=== PATIENT | male | born 1950 | race Caucasian/White ===

== ENCOUNTER 2016-09-17 06:44 | Day surgery (SDC) | payer MEDICARE, OTHER ==
[~2016-09-17] VITALS: Ht 182.9 cm; Wt 98.0 kg
[~2016-09-17 06:44] MED LIST: ALBU8.5H2 IH; APIX5TAB PO; ASPI-860 PO; ATOR10TA PO; BECL8.7A5 IH; BUDE10.2 IH; FLEC100T2 PO; FLUT16SP NS; LACTATED RINGERS 1,000 ML IV SCH; MNTL10T PO; NFLOSA25TA PO; SODIUM CHLORIDE FLUSH 3 ML SYR IV PRN; ZLP10T PO; [UNRECOGNIZED DRUG - CODE] PO
[2016-09-17 07:08] VITALS: BP 142/84
[2016-09-17] MEDS ORDERED: LOSA1TAB69 PO (07:14)
[2016-09-17] MEDS ORDERED: MIDAZOLAM 2 MG/2 ML (VERSED) VIAL ONE (07:16)
[2016-09-17] MEDS ORDERED: PROPOFOL 20 ML IV ONE (07:16)
[2016-09-17] MEDS ORDERED: ALFENTANIL 500 MCG/ML (ALFENTA) 5 ML AMP IV ONE (07:16)
[2016-09-17 09:07] VITALS: BP 109/62
[2016-09-17 09:21] VITALS: BP 101/59
--- NOTE | 2016-09-17 11:04 | OPERATIVE REPORT ---
DATE OF OPERATION: 09/17/2016 PRE-OPERATIVE DIAGNOSIS: Screening colonoscopy POST-OPERATIVE DIAGNOSIS: 1. Polyp of ascending colon. 2. Sigmoid diverticulosis. OPERATIVE PROCEDURE: Total colonoscopy with polypectomy ((saline lift and cautery snare) SURGEON: Tra Hamm MD ANESTHESIA: Monitored anesthesia care FINDINGS: 1. The bowel prep was fair. There was some liquid and particulate stool in dependent areas that had to be irrigated or suctioned in order to see. 2. A small sessile polyp was noted along a fold in the ascending colon, just distal to the cecum. This was photographed and then removed using an endoscopic mucosal resection. 3. There were a few scattered diverticula in the sigmoid colon. 4. No inflammation or angiodysplasia were seen. INDICATION: The patient is a 66-year-old referred by Dr. Fonseca for colonoscopy screening. He has not had any bowel habit changes and his family history is negative for colorectal cancer. DESCRIPTION OF PROCEDURE: The patient was informed of the risks and benefits and agreed to proceed. He was placed in the left lateral decubitus position and administered IV sedation. When properly sedated a rectal exam was performed, which was normal. The lighted endoscope was passed into the rectum and advanced along the colon to the cecum. The ileocecal valve and the appendiceal orifice were easily seen. Just outside the cecum, this polyp was noted and removed using the saline-lift and cautery snare. It was retrieved for pathology. The scope was slowly withdrawn through the rest of the ascending, as well as the transverse, descending, and sigmoid colon. No other polyps were seen. Diverticula were noted in the distal sigmoid colon. They were not particularly plentiful. The rectum appeared normal on regular view and retroflexion. The scope was removed completing the procedure. The patient tolerated the procedure without complications. Pathology is pending.
== END 2016-09-17 09:28 | disposition home or self-care (01) ==
LOC: ASC 06:44
PROVIDERS: ATTEND Surgery
PROC: 3E0H8GC Introduction of Other Therapeutic Substance into Lower GI, Via Natural or Artificial Opening Endoscopic (ICD-10-PCS; principal; 2016-09-17)
PROC: 0DBK8ZX Excision of Ascending Colon, Via Natural or Artificial Opening Endoscopic, Diagnostic (ICD-10-PCS; 2016-09-17)
DX: Z12.11 Encounter for screening for malignant neoplasm of colon (principal); D12.2 Benign neoplasm of ascending colon; I48.91 Unspecified atrial fibrillation; Z79.01 Long term (current) use of anticoagulants
CPT/HCPCS: 36415; 45381; 45385; 84132; 88305; J2250; J7120

== ENCOUNTER → 2016-10-28 | Outpatient (CLI) | payer MEDICARE, OTHER ==
[2016-10-28 09:40] LABS: BASOPHILS % (AUTO) 1 % (0-2); EOSINOPHILS # (AUTO) 0.3 10^3uL; EOSINOPHILS % (AUTO) 4 % (0-4); LYMPHOCYTES # (AUTO) 1.1 X10^3; MEAN CORPUSCULAR HGB CONC 32.7 g/dL (31.0-37.0); MEAN CORPUSCULAR VOLUME 92 FL (80-100); MEAN PLATELET VOLUME 10.4 FL (6.0-9.5); MONOCYTES # (AUTO) 0.5 X10^3; MONOCYTES % (AUTO) 8 % (3-11); NEUTROPHILS % (AUTO) 73 % (51-67); PLATELET COUNT 246 10^3uL (150-450); WHITE BLOOD COUNT 6.83 10^3uL (4.0-11.0)
[2016-10-28 10:08] LABS: ALBUMIN 3.9 g/dL (3.4-5.0); ANION GAP 12.1 MEQ/L (3-15); CALCULATED IONIZED CALCIUM 4.1 mg/dL (3.8-4.6); TOTAL PROTEIN 7.1 g/dL (6.4-8.5)
== END ==
LOC: LAB 09:21
PROVIDERS: ATTEND Internal Medicine Nephrology
DX: I12.9 Hypertensive chronic kidney disease with stage 1 through stage 4 chronic kidney disease, or unspecified chronic kidney disease (principal); N18.3 Chronic kidney disease, stage 3 (moderate); D64.9 Anemia, unspecified
CPT/HCPCS: 36415; 80053; 80061; 83735; 84100; 85025

== ENCOUNTER → 2016-12-02 | Outpatient (CLI) | payer MEDICARE, OTHER ==
[~2016-12-02] MED LIST changes: -LACTATED RINGERS 1,000 ML IV SCH; +LOSA1TAB69 PO; -SODIUM CHLORIDE FLUSH 3 ML SYR IV PRN
== END ==
LOC: LAB 11:49
PROVIDERS: ATTEND Orthopaedic Surgery Adult Reconstructive Orthopaedic Surgery
DX: M25.551 Pain in right hip (principal); M25.552 Pain in left hip; Z96.653 Presence of artificial knee joint, bilateral
CPT/HCPCS: 36415; 82495; 83789